=== PATIENT | female | born 1930 | race Hispanic/Latino ===

== ENCOUNTER 2018-06-19 14:30 | Emergency (ER) | payer MEDICARE ==
[2018-06-19 14:31] VITALS: BMI 24.3
[2018-06-19 14:45] VITALS: BP 133/79; PULSE 88; RESP 17; TEMP 98; O2SAT 96
--- NOTE | 2018-06-19 15:09 | ED PDOC ---
Upper Extremity Pain/Injury Chief Complaint (Nursing): Finger,Hand,&Wrist Chief Complaint (Provider): Finger,Hand,&Wrist History Per: Patient History/Exam Limitations: no limitations Onset/Duration Of Symptoms: Days (x7) Current Symptoms Are (Timing): Still Present Additional Complaint(s): Patient is an 87 y/o female with a PMHx of HTN, hypercholesterolemia, pneumonia, PE, and gall bladder disease who presents to the ED for evaluation of a swollen/inflamed 2nd digit finger on her left hand, onset last week. Patient states swelling began from knuckle and has worsened along the finger over time. Patient denies any recent trauma. PCP: Dr. Yevgeniy Elam Past Medical History Reviewed: Historical Data, Nursing Documentation, Vital Signs Vital Signs: Last Vital Signs Temp 98.0 F 06/19/18 14:44 Pulse 88 06/19/18 14:44 Resp 17 06/19/18 14:44 BP 133/79 06/19/18 14:44 Pulse Ox 96 06/19/18 14:44 - Medical History PMH: Gall Bladder Disease, HTN, Hypercholesterolemia, Pneumonia, Pulmonary Embolism Denies: Alzheimer's Disease, Anemia, Asthma, Atrial Fibrillation, Bronchitis, Cardia Arrhythmia, CHF, COPD, Dementia, Emphysema, HIV, Hyperthyroidism, Hypothyroidism, Kidney Stones, Migraine, Mitral Valve Prolapse, Multiple Scl erosis, Parkinson's Disease, Peripheral Edema, Chronic Kidney Disease, Seizures, Sickle Cell Disease, Sleep Apnea, TIA - Surgical History Surgical History: Cholecystectomy Denies: Pacemaker - Family History Family History: States: Unknown Family Hx - Home Medications Home Medications: Ambulatory Orders Medication Instructions Recorded RX: Losartan/Hydrochlorothiazide 1 tab PO DAILY 07/03/14 [Hyzaar 100-25 Tablet] RX: Lovastatin 1 tab PO DAILY 07/03/14 RX: cloNIDine [Catapres] 1 tab PO BID 07/03/14 RX: Rivaroxaban [Xarelto] 15 mg PO DAILY #30 tab 11/12/14 RX: Rivaroxaban [Xarelto] 20 mg PO BIDWM 11/12/14 - Allergies Allergies/Adverse Reactions: Allergies Allergy/AdvReac Type Severity Reaction Status Date / Time Penicillins Allergy RASH Verified 06/19/18 15:13 Review of Systems ROS Statement: Except As Marked, All Systems Reviewed And Found Negative Musculoskeletal: Positive for: Hand Pain (left, 2nd digit) Physical Exam - Reviewed Nursing Documentation Reviewed: Yes Vital Signs Reviewed: Yes - Physical Exam Appears: Positive for: No Acute Distress Head Exam: Positive for: ATRAUMATIC, NORMAL INSPECTION, NORMOCEPHALIC Skin: Positive for: Normal Color Eye Exam: Positive for: Normal appearance Neck: Positive for: Normal Cardiovascular/Chest: Positive for: Regular Rate, Rhythm Respiratory: Positive for: Normal Breath Sounds Gastrointestinal/Abdominal: Positive for: Normal Exam Extremity: Positive for: Other (no past inflexion; mild inflammation). Negative for: Normal ROM (cannot bend 2nd digit, left hand), Tenderness (to flex or tendon; on flexion), Swelling (fuse or form) Neurologic/Psych: Positive for: Alert, Oriented (x3) - ECG O2 Sat by Pulse Oximetry: 96 (RA) Pulse Ox Interpretation: Normal Medical Decision Making Medical Decision Making: Time: 1520 Plan: Hand Left 3 Views Routine [Rad] Time: 1546 FINDINGS: BONES: No acute fracture appreciated. JOINTS: Diffuse joint space narrowing metacarpal phalangeal and all interphalangeal joints. SOFT TISSUES: Coalescent extra osseous periarticular calcification ossification ulnar aspect 2nd PIP joint. With greater soft tissue swelling and density here than the other digits. Probably also dorsal position. OTHER FINDINGS: None. IMPRESSION: No fracture or dislocation. Degenerative changes as above. Extra osseous soft tissue calcification ossification 2nd digit as above etiology uncertain. Scribe Attestation: Documented by Ian Huerta, acting as a scribe for Ludwin SABA. Provider Scribe Attestation: All medical record entries made by the Scribe were at my direction and personally dictated by me. I have reviewed the chart and agree that the record accurately reflects my personal performance of the history, physical exam, medical decision making, and the department course for this patient. I have also personally directed, reviewed, and agree with the discharge instructions and disposition. Disposition - Clinical Impression Clinical Impression: Heterotopic ossification of bone - Disposition Referrals: [facility] [Outside] Disposition: Routine/Home Disposition Time: 16:58 Condition: STABLE Instructions: Muscle and Bone Pain (DC) Forms: [facility] ([place])
--- NOTE | 2018-06-19 16:20 | RAD ---
PROCEDURE: Left Hand Radiographs. HISTORY: r/o fx COMPARISON: None. FINDINGS: BONES: No acute fracture appreciated. JOINTS: Diffuse joint space narrowing metacarpal phalangeal and all interphalangeal joints. SOFT TISSUES: Coalescent extra osseous periarticular calcification ossification ulnar aspect 2nd PIP joint. With greater soft tissue swelling and density here than the other digits. Probably also dorsal position. OTHER FINDINGS: None. IMPRESSION: No fracture or dislocation. Degenerative changes as above. Extra osseous soft tissue calcification ossification 2nd digit as above etiology uncertain.
== END 2018-06-19 16:57 | disposition home or self-care (01) ==
LOC: H.ER 14:30
DX: M61.9 Calcification and ossification of muscle, unspecified (principal)